=== PATIENT | female | born 1960 | race Asian ===

== ENCOUNTER 2021-04-17 17:06 | Emergency (ER) | payer OTHER ==
[2021-04-17 17:33] VITALS: BMI 24.9
[2021-04-17] MEDS ORDERED: ACETAMINOPHEN 1000 MG/100 ML VIAL (NON FORMULARY) IVPB ONE (18:07)
[2021-04-17] MEDS ORDERED: MECLIZINE HCL 25 MG TABLET (FP) PO ONE (18:07)
[2021-04-17] MEDS ORDERED: METOCLOPRAMIDE HCL INJECTION 10 MG/2 ML VIAL IVPUSH ONE (18:07)
[2021-04-17] MEDS ORDERED: SODIUM CHLORIDE 0.9% 500 ML INFUS.BAG IV ONE (18:08)
[2021-04-17] MEDS ORDERED: METOCLOPRAMIDE HCL INJECTION 10 MG/2 ML VIAL ONE (18:21)
[2021-04-17] MEDS ORDERED: MECLIZINE HCL 25 MG TABLET (FP) ONE (18:21)
[2021-04-17] MEDS ORDERED: ACETAMINOPHEN INJECTION 100 ML IVPB ONE (18:21)
[2021-04-17] MEDS ORDERED: LORazepam 2 MG/ML SDV VIAL IVPUSH ONE (18:50)
[2021-04-17 18:56] LABS: BASO % 0.7 % (0-2.0); EOS % 7.6 % (0-4.5); HEMATOCRIT 36.9 % (32.4-45.2); HEMOGLOBIN 12.7 GM/dL (10.7-15.3); LYMPH % 25.9 % (8-40); MCH 29.3 pg (25.7-33.7); MCHC 34.5 g/dl (32.0-36.0); MEAN CELL VOLUME 84.8 fl (80-96); MEAN PLT VOLUME 8.3 fl (7.5-11.1); MONO % 5.6 % (3.8-10.2); NEUT % 60.2 % (42.8-82.8); PLATELET COUNT 336 10^3/uL (134-434); RBC 4.34 M/mm3 (3.60-5.2); RDW 13.7 % (11.6-15.6); WHITE BLOOD COUNT 9.2 K/mm3 (4.0-10.0)
[2021-04-17] MEDS ORDERED: amLODIPine BESYLATE 5 MG TABLET (FP) PO ONE (19:02)
[2021-04-17 19:07] LABS: CHLORIDE 100 mmol/L (98-107); SODIUM 133 mmol/L (136-145)
[2021-04-17 19:09] LABS: ALBUMIN 3.5 g/dl (3.4-5.0); CALCIUM 8.8 mg/dL (8.5-10.1)
[2021-04-17 19:10] LABS: ANION GAP 6 MMOL/L (8-16); BLOOD UREA NITROGEN 15.1 mg/dL (7-18); CO2 27 mmol/L (21-32); GLUCOSE,RANDOM 140 mg/dL (74-106); MAGNESIUM 2.3 mg/dL (1.8-2.4)
[2021-04-17 19:13] LABS: CREATININE 0.7 mg/dL (0.55-1.3); SGOT/AST 24 U/L (15-37)
[2021-04-17 19:15] LABS: BILIRUBIN,TOTAL 0.1 mg/dL (0.2-1); TOT PROT 7.1 g/dl (6.4-8.2)
[2021-04-17 19:16] LABS: ALK PHOS 108 U/L (45-117)
[2021-04-17 19:18] LABS: SGPT/ALT 47 U/L (13-61)
[2021-04-17] MEDS ORDERED: LOSARTAN 50MG/HCTZ 12.5MG 1 TAB PO ONE (19:31)
[2021-04-17] MEDS ORDERED: LORazepam 2 MG/ML SDV VIAL ONE (19:53)
[2021-04-17] MEDS ORDERED: LOSARTAN POTASSIUM 50 MG TABLET ONE (19:53)
[2021-04-17] MEDS ORDERED: amLODIPine BESYLATE 5 MG TABLET (FP) ONE (19:53)
[2021-04-18] MEDS ORDERED: hydrALAZINE HCL 20 MG/ML VIAL IVPUSH PRN (02:18)
[2021-04-18] MEDS ORDERED: METOCLOPRAMIDE HCL INJECTION 10 MG/2 ML VIAL IVPUSH PRN (02:24)
[2021-04-18 04:48] LABS: INR 0.98 (0.83-1.09); PROTHROMBIN TIME (PATIENT) 11.9 SEC (9.7-13.0)
[2021-04-18 04:50] LABS: ACTIVATED PTT 27.4 SECONDS (25.2-36.5)
[2021-04-18 06:40] LABS: BASO % 0.8 % (0-2.0); EOS % 9.8 % (0-4.5); HEMOGLOBIN 13.1 GM/dL (10.7-15.3); LYMPH % 34.7 % (8-40); MCHC 35.3 g/dl (32.0-36.0); MEAN CELL VOLUME 84.9 fl (80-96); MEAN PLT VOLUME 8.7 fl (7.5-11.1); MONO % 5.7 % (3.8-10.2); PLATELET COUNT 323 10^3/uL (134-434); RBC 4.36 M/mm3 (3.60-5.2); RDW 13.8 % (11.6-15.6); WHITE BLOOD COUNT 7.8 K/mm3 (4.0-10.0)
[2021-04-18 07:01] LABS: CALCIUM 8.9 mg/dL (8.5-10.1)
[2021-04-18 07:02] LABS: BLOOD UREA NITROGEN 9.8 mg/dL (7-18)
[2021-04-18 07:05] LABS: CREATININE 0.5 mg/dL (0.55-1.3)
[2021-04-18] MEDS: INSULIN SLIDING SCALE (NOVOLOG) 1 VIAL SQ SCH ×4 (07:25→22:37)
[2021-04-18] MEDS ORDERED: ENOXAPARIN NA (PORCINE) 40 MG/0.4 ML DISP.SYRIN SQ SCH (10:00)
[2021-04-18] MEDS ORDERED: ENOXAPARIN NA (PORCINE) 40 MG/0.4 ML DISP.SYRIN SQ ONE (10:27)
[2021-04-18] MEDS ORDERED: amLODIPine BESYLATE 5 MG TABLET (FP) PO ONE (19:12)
[2021-04-18] MEDS ORDERED: amLODIPine BESYLATE 5 MG TABLET (FP) ONE (19:28)
[2021-04-18] MEDS ORDERED: ATORVASTATIN CA 10 MG TABLET (FP) ONE (21:24)
[2021-04-18] MEDS ORDERED: ATORVASTATIN CA 10 MG TABLET (FP) PO SCH (22:00)
[2021-04-18 23:30] VITALS: BP 161/98; PULSE 85; TEMP 97.9
== END 2021-04-18 11:30 | disposition home or self-care (01) ==
LOC: JER 17:06 → JERBED 21:29 → UNDOADMIN 21:29 → JER 04-18 11:30
PROC: 3E0333Z Introduction of Anti-inflammatory into Peripheral Vein, Percutaneous Approach (ICD-10-PCS; principal; 2021-04-17)
PROC: 3E033GC Introduction of Other Therapeutic Substance into Peripheral Vein, Percutaneous Approach (ICD-10-PCS; 2021-04-17)
PROC: 3E033NZ Introduction of Analgesics, Hypnotics, Sedatives into Peripheral Vein, Percutaneous Approach (ICD-10-PCS; 2021-04-17)
PROC: 3E033GC Introduction of Other Therapeutic Substance into Peripheral Vein, Percutaneous Approach (ICD-10-PCS; 2021-04-17)
DX: R11.0 Nausea (principal); R42 Dizziness and giddiness; R51.9 Headache, unspecified
CPT/HCPCS: 36415; 70450-TC; 71045-TC-FY; 80048; 80053; 82962; 83735; 84484; 85025; 85610; 85730; 93005; 93010; 99285-25; C9803; J0131; U0003; U0005